=== PATIENT | male | born 1960 | race Caucasian/White ===

== ENCOUNTER 2016-12-22 19:50 | Emergency (ER) | payer OTHER ==
[2016-12-22 20:06] VITALS: BP 109/71
[2016-12-22] MEDS ORDERED: Diphtheria,Pertussis(Acell),Tetanus Vaccine 0.5 ML SDV IM ONE (20:39)
[2016-12-22] MEDS ORDERED: Bacitracin/Neomycin/Polymyxin B Oint 0.9 GM U/D Packet TOP ONE (20:44)
--- NOTE | 2016-12-22 20:59 | EDM.PDOC ---
ED HPI GENERAL MEDICAL PROBLEM - General Chief Complaint: General Stated Complaint: laceration Time Seen by Provider: 12/22/16 20:15 Source of Information: Reports: Patient History Limitations: Reports: No Limitations - History of Present Illness INITIAL COMMENTS - FREE TEXT/NARRATIVE: The patient presents with a laceration to his dorsal thumb that he sustained while installing a freshly sharpened blade on his lawnmower. It happened just prior to arrival in the ER. He denies other injuries or complaints. He states his last tetanus vaccination was more than 6 years ago. - Related Data Allergies Allergy/AdvReac Type Severity Reaction Status Date / Time Penicillins Allergy Intermediate Redness Verified 07/11/13 16:34 Dairy Products Allergy Chest Verified 12/22/16 19:52 Tightness, shortness of breath Iodine and Iodide Containing Allergy Anaphylactic Verified 07/10/14 13:00 Produc Shock lecithin, soy Allergy Anaphylactic Verified 07/11/13 16:34 Shock peanut Allergy Anaphylactic Verified 07/11/13 19:32 Shock petrolatum, yellow Allergy Shortness Verified 07/11/13 16:34 of Breath petrolatum,white Allergy Shortness Verified 07/10/14 13:49 [From Petroleum Jelly] of Breath povidone-iodine Allergy rash and Verified 07/10/14 13:00 [From Betadine] swelling at site used soap [From Betadine] Allergy rash and Verified 07/10/14 13:00 swelling at site used eggs Allergy Severe Anaphylactic Uncoded 07/11/13 16:34 Shock chocolate Allergy Anaphylactic Uncoded 07/11/13 16:34 Shock fruits Allergy Airway Uncoded 07/10/14 15:28 Tightness, anaphylactic reaction seafood Allergy Anaphylactic Uncoded 07/11/13 16:34 Shock shrimp Allergy Anaphylactic Uncoded 07/11/13 16:34 Shock smoked meats Allergy Airway Uncoded 07/10/14 15:28 Tightness spices Allergy Anaphylactic Uncoded 07/10/14 15:28 Shock vanilla Allergy Anaphylactic Uncoded 07/11/13 16:34 Shock vegetables Allergy Airway Uncoded 07/10/14 15:28 Tightness, anaphylactic reaction Home Meds: Home Meds Desvenlafaxine [Pristiq] 50 mg PO BEDTIME 07/11/13 [History] Albuterol Sulfate [Albuterol Sulfate HFA] 1 puff INH Q4HR PRN 07/10/14 [History] Albuterol [Proventil Neb Soln] 1 ampule INH TID PRN 07/10/14 [History] Fluticasone/Salmeterol [Advair 250-50 Diskus] 1 puff INH BID PRN 07/10/14 [ History] Montelukast Sodium [Singulair] 10 mg PO DAILY #30 tablet 07/13/14 [Rx] Past Medical History - Past Health History Medical/Surgical History: Denies Medical/Surgical History Social & Family History - Tobacco Use Smoking Status *Q: Never Smoker Second Hand Smoke Exposure: No - Caffeine Use Caffeine Use: Reports: None Caffeine Use Comment: rare soda - Recreational Drug Use Recreational Drug Use: No ED ROS GENERAL - Review of Systems Review Of Systems: ROS reveals no pertinent complaints other than HPI. ED EXAM, GENERAL - Physical Exam Exam: See Below Exam Limited By: No Limitations General Appearance: Alert, WD/WN, No Apparent Distress Eye Exam: Bilateral Eye: EOMI, Normal Fundi, Normal Inspection, PERRL Ears: Normal External Exam, Normal Canal, Hearing Grossly Normal, Normal TMs Ear Exam: Bilateral Ear: Auricle Normal, Canal Normal, TM normal Nose: Normal Inspection, Normal Mucosa, No Blood Throat/Mouth: Normal Inspection, Normal Lips, Normal Teeth, Normal Gums, Normal Oropharynx, Normal Voice Head: Atraumatic, Normocephalic Respiratory/Chest: No Respiratory Distress, Lungs Clear, Normal Breath Sounds, No Accessory Muscle Use, Chest Non-Tender Cardiovascular: Normal Peripheral Pulses, Regular Rate, Rhythm, No Edema, No Gallop, No Murmur, No Rub Peripheral Pulses: 2+: Radial (L), Radial (R) GI/Abdominal: Normal Bowel Sounds, Soft, Non-Tender, No Organomegaly, No Distention Back Exam: Normal Inspection, Full Range of Motion. No: CVA Tenderness (L), CVA Tenderness (R), Paraspinal Tenderness, Vertebral Tenderness Extremities: Normal Inspection, Normal Range of Motion, Non-Tender, No Pedal Edema, Normal Capillary Refill Neurological: Alert, Oriented, CN II-XII Intact, Normal Cognition, Normal Gait, Normal Reflexes, No Motor/Sensory Deficits Skin Exam: Warm, Dry, Normal Color, No Rash, Other (2 cm linear laceration of right dorsal thumb down to deep dermal layer. No gross contamination or active bleeding. Wound cleansed and soaked in Chlorhexidine/Hibiclens. No damage to tendons, nerves, or vessels. ) ED GENERAL MEDICAL PROCEDURES - Laceration/Wound Repair Right Dorsal Finger Lac/wound length in cm: 2 (Right dorsal thumb.) Appearance: subcutaneous, linear, clean Distal NVT: neuro & vascular intact, no tendon injury Anesthetic Type: local Local anesthesia - Lidocaine (Xylocaine): 1% plain Local anesthetic volume: 5cc Skin prep: chlorhexidine (hibiciens) Saline irrigation (cc's): 20 Exploration/Debridement/Repair: wound explored, in a bloodless field, explored to base Closed with: sutures Suture size: other (5-0) # of sutures: 4 Suture type: nylon Tetanus status addressed: Yes Complications: No Progress/Comments: Patient tolerated well with complications or complaints. Course - Vital Signs Last Recorded V/S: Last Vital Signs Temp 36.9 C 12/22/16 20:04 Pulse 74 12/22/16 20:04 Resp 16 12/22/16 20:04 BP 109/71 12/22/16 20:04 Pulse Ox 97 12/22/16 20:04 - Orders/Labs/Meds Orders: Active Orders 24 hr Category Date Time Status Vaccines to be Administered [RC] PER UNIT ROUTINE Care 12/22/16 20:40 Active Meds: Medications Discontinued Medications Generic Name Dose Route Start Last Admin Trade Name Freq PRN Reason Stop Dose Admin Diphtheria/Tetanus/Acell Pertussis 0.5 ml 12/22/16 20:39 Adacel IM 12/22/16 20:40 .ONCE ONE Lidocaine HCl 5 ml 12/22/16 20:12 12/22/16 20:33 Xylocaine-Mpf 1% INJECT 12/22/16 20:13 5 ml ONETIME ONE Administration Neomycin/Polymyxin/Bacitracin 1 each 12/22/16 20:44 Triple Antibiotic Oint TOP 12/22/16 20:45 ONETIME ONE Departure - Departure Time of Disposition: 20:59 Disposition: Home, Self-Care 01 Clinical Impression: Laceration of thumb, right Qualifiers: Encounter type: initial encounter Qualified Code(s): S61.011A - Laceration without foreign body of right thumb without damage to nail, initial encounter - Discharge Information Forms: ED Department Discharge - My Orders Last 24 Hours: My Active Orders 12/22/16 20:40 Vaccines to be Administered [RC] PER UNIT ROUTINE - Assessment/Plan Last 24 Hours: My Active Orders 12/22/16 20:40 Vaccines to be Administered [RC] PER UNIT ROUTINE Assessment:: Laceration of right thumb, 2 cm. Plan: 1. Wound cleansed and suture closure as above. 2. Triple antibiotic ointment applied followed by sterile dressing. Instructed to leave dry and in place for 24 hours. 3. After 24 hours may remove dressing and shower/wash with mild soap but do not soak until sutures removed. 4. OTC ibuprofen 400-800 mg every 6 hours as needed for pain. 5. Return to clinic in 7-10 days for suture removal or sooner if increased redness, swelling, opening of wound or drainage.
== END 2016-12-22 21:15 | disposition home or self-care (01) ==
LOC: LL.ED 19:50
DX: S61.011A Laceration without foreign body of right thumb without damage to nail, initial encounter (principal); Z88.0 Allergy status to penicillin; Z91.010 Allergy to peanuts; Z88.8 Allergy status to other drugs, medicaments and biological substances; Z91.012 Allergy to eggs; Z91.011 Allergy to milk products; Z91.013 Allergy to seafood; Z91.018 Allergy to other foods; Z79.899 Other long term (current) drug therapy; W28.XXXA Contact with powered lawn mower, initial encounter
CPT/HCPCS: 12001; 90471; 90715; 99282

== ENCOUNTER 2017-04-13 10:46 | Emergency (ER) | payer OTHER ==
[2017-04-13] MEDS ORDERED: Famotidine 20 MG/2 ML SDV IVPUSH ONE (11:07)
[2017-04-13] MEDS ORDERED: Sodium Chloride 0.9% 10 ML Syringe FLUSH PRN (11:07)
--- NOTE | 2017-04-13 11:07 | EDM.PDOC ---
ED HPI GENERAL MEDICAL PROBLEM - General Chief Complaint: General Stated Complaint: i was stung by a yellow jacket Time Seen by Provider: 04/13/17 11:00 Source of Information: Reports: Patient, Old Records ([facility] chart/EMR) History Limitations: Reports: No Limitations - History of Present Illness INITIAL COMMENTS - FREE TEXT/NARRATIVE: The patient was brought to the emergency room via private automobile by his friend for evaluation of a yellow jacket sting, which occurred at his home at 10 :45 AM this morning. He did see the stinger in his right wrist at time of the above injury, however this has since fallen out prior to my evaluation as below. The patient has not taken any medications after the above injury, including his own EpiPen, etc. He complains of initial 7/10 burning sensation at sting site with improvement to 5/10 by time of my arrival in the emergency room. He denies any other significant allergic-type symptoms including angioedema, dysphasia, dyspnea, etc.. The patient denies any chest pain/pressure , heart flutter, dizziness, orthostasis, orthopnea, diaphoresis, paresthesias, recent decreased exercise tolerance, or any other anginal-type symptoms. No recent history of abdominal pain, heartburn, nausea, diarrhea, melena, gross hematochezia, or any food intolerance, including fatty foods, etc.. The patient also denies any recent fever, cough, wheezing, dyspnea, etc.. Onset: Today, Sudden Onset Date: 04/13/17 Onset Time: 10:45 Duration: Improving Location: Reports: Upper Extremity, Right. Denies: Head, Face, Neck, Chest, Abdomen, Back, Pelvis, Upper Extremity, Left, Lower Extremity, Left, Lower Extremity, Right, Generalized, Radiates to Quality: Reports: Burning, Same as Previous Episode Severity: Moderate Improves with: Reports: None Worsens with: Reports: None Context: Reports: Other (As above) Associated Symptoms: Reports: Rash (Mild redness at sting site). Denies: Confusion, Chest Pain, Cough, Diaphoresis, Fever/Chills, Headaches, Loss of Appetite, Malaise, Nausea/Vomiting, Shortness of Breath, Syncope, Weakness Treatments [employer]: Reports: Other (see below) (None) Right Lower Wrist Pain Score (Numeric/FACES): 5 - Related Data Allergies Allergy/AdvReac Type Severity Reaction Status Date / Time Penicillins Allergy Intermediate Redness Verified 07/11/13 16:34 Dairy Products Allergy Chest Verified 12/22/16 19:52 Tightness, shortness of breath Iodine and Iodide Containing Allergy Anaphylactic Verified 07/10/14 13:00 Produc Shock lecithin, soy Allergy Anaphylactic Verified 07/11/13 16:34 Shock peanut Allergy Anaphylactic Verified 07/11/13 19:32 Shock petrolatum, yellow Allergy Shortness Verified 07/11/13 16:34 of Breath petrolatum,white Allergy Shortness Verified 07/10/14 13:49 [From Petroleum Jelly] of Breath povidone-iodine Allergy rash and Verified 07/10/14 13:00 [From Betadine] swelling at site used soap [From Betadine] Allergy rash and Verified 07/10/14 13:00 swelling at site used eggs Allergy Severe Anaphylactic Uncoded 07/11/13 16:34 Shock chocolate Allergy Anaphylactic Uncoded 07/11/13 16:34 Shock fruits Allergy Airway Uncoded 07/10/14 15:28 Tightness, anaphylactic reaction seafood Allergy Anaphylactic Uncoded 07/11/13 16:34 Shock shrimp Allergy Anaphylactic Uncoded 07/11/13 16:34 Shock smoked meats Allergy Airway Uncoded 07/10/14 15:28 Tightness spices Allergy Anaphylactic Uncoded 07/10/14 15:28 Shock vanilla Allergy Anaphylactic Uncoded 07/11/13 16:34 Shock vegetables Allergy Airway Uncoded 07/10/14 15:28 Tightness, anaphylactic reaction Home Meds: Home Meds Desvenlafaxine [Pristiq] 50 mg PO BEDTIME 07/11/13 [History] Albuterol Sulfate [Albuterol Sulfate HFA] 1 puff INH Q4HR PRN 07/10/14 [History] Albuterol [Proventil Neb Soln] 1 ampule INH TID PRN 07/10/14 [History] Montelukast Sodium [Singulair] 10 mg PO DAILY #30 tablet 07/13/14 [Rx] Calcium Carbonate/Vitamin D3 [Calcium 600-Vit D3 400 Tablet] 1 each PO DAILY 11/24 [History] EPINEPHrine [Epipen] 1 ampule SUBCUT ASDIRECTED PRN 04/13/17 [History] Famotidine [Pepcid] 20 mg PO BID #14 tablet 04/13/17 [Rx] diphenhydrAMINE [Benadryl] 50 mg PO QID PRN #100 tablet 04/13/17 [Rx] Past Medical History HEENT History: Reports: Allergic Rhinitis, Impaired Vision, Other (See Below). Denies: Cataract, Glaucoma, Hard of Hearing, Macular Degeneration, Retinal Detachment Other HEENT History: Severe multiple allergies to multiple substances including secondary anaphylaxis with the patient currently receiving allergy immunotherapy , the patient wears glasses Cardiovascular History: Reports: High Cholesterol, Other (See Below). Denies: Afib, Aneurysm, Arrhythmia, Blood Clots/VTE/DVT, CAD, Cardiomyopathy, Heart Murmur, Hypertension, ID, PTCA, PVD, Syncope Other Cardiovascular History: Hyperlipidemia with fatty liver by ultrasound with current diet therapy Respiratory History: Reports: Asthma, Bronchitis, Recurrent, COPD, Pneumonia, Recurrent, Pulmonary Fibrosis, Other (See Below). Denies: Intubation, Previous , PE, Pneumothorax, Sleep Apnea, TB Other Respiratory History: COPD and pulmonary fibrosis by chest x-ray Gastrointestinal History: Reports: Gastritis, GERD, Other (See Below). Denies: Bowel Obstruction, Celiac Disease, Cholelithiasis, Chronic Constipation, Chronic Diarrhea, GI Bleed, Hepatitis, Hiatal Hernia, Inflammatory Bowel Disease , Irritable Bowel Syndrome, Jaundice, Pancreatitis, PUD Other Gastrointestinal History: History of esophageal stenosis requiring dilatation as below, no dysphagia Genitourinary History: Denies: Acute Renal Failure, BPH, Chronic Renal Insuffiency, Renal Calculus, STD, Urinary Incontinence, UTI, Recurrent Musculoskeletal History: Reports: Fracture, Osteoarthritis, Osteoporosis, Other (See Below). Denies: Amputation, Arthritis, Back Pain, Chronic, Gout, Neck Pain , Chronic, RA, SLE Other Musculoskeletal History: Left clavicular fracture at age 5 Neurological History: Reports: Headaches, Chronic, Other (See Below). Denies: Concussion, CVA, Head Trauma, Migraines, MS, Neuropathy, Diabetic, Neuropathy, Peripheral, Parkinson's, Seizure, TIA Other Neuro History: Headaches nonproblematic at this time Psychiatric History: Reports: None, Anxiety, Depression. Denies: Abuse, Victim of, ADD, ADHD, Addiction, Psych Hospitalization(s), PTSD, Suicide Attempt, Suicidal Ideation Endocrine/Metabolic History: Reports: Osteoporosis. Denies: Diabetes, Type I, Diabetes, Type II, Hypothyroidism, IDDM Hematologic History: Reports: Blood Transfusion(s), Other (See Below). Denies: Anemia Other Hematologic History: Blood transfusion in about 1965 for unknown reason Immunologic History: Reports: Immunosuppression, Other (See Below). Denies: AIDS, HIV, SLE Other Immunologic History: Current immunotherapy for allergies as above Oncologic (Cancer) History: Reports: None. Denies: Basal Cell Carcinoma, Hodgkin's Lymphoma, Leukemia, Lymphoma, Malignant Melanoma, Non-Hodgkin's Lymphoma, Squamous Cell Carcinoma Dermatologic History: Reports: Angiodema, Other (See Below). Denies: Eczema, Psoriasis Other Dermatologic History: Angioedema with allergic reactions as above - Infectious Disease History Infectious Disease History: Reports: Chicken Pox, Mononucleosis (1970s). Denies : C-Difficile, Measles, Meningitis, MRSA, Mumps, Pertussis (Whooping Cough), Rheumatic Fever, Rubella, Scarlet Fever, Shingles, VRE - Past Surgical History Head Surgeries/Procedures: Reports: None HEENT Surgical History: Reports: Naso-Sinus Surgery, Oral Surgery, Other (See Below). Denies: Adenoidectomy, Cataract Surgery, Eye Surgery, Laser Surgery, LASIK, Tonsillectomy Other HEENT Surgeries/Procedures: [place] teeth extraction 4 at about age 21, nasal septum repair 3 in his 20s Cardiovascular Surgical History: Reports: None. Denies: Varicose, Vascular Surgery Respiratory Surgical History: Reports: None. Denies: Thoracentesis GI Surgical History: Reports: EGD, Other (See Below). Denies: Appendectomy, Cholecystectomy, Colonoscopy, Hernia, Abdominal, Hernia, Inguinal, Hernia Repair /Other Other GI Surgeries/Procedures: EGD with esophageal dilatation in the 1980s Male Surgical History: Reports: Circumcision, Other (See Below). Denies: TURP-Transurethral Resection of Prostate, Vasectomy Other Male Surgeries/Procedures: Circumcision as an infant Endocrine Surgical History: Reports: None. Denies: Thyroid Biopsy Neurological Surgical History: Denies: C-Spine, Laminectomy, Lumbar Spine, Sacral Spine, Spinal Fusion, Vertebroplasty Musculoskeletal Surgical History: Reports: None. Denies: Amputation, Arthroscopic Procedure, Carpal Tunnel, Ganglion Cyst, Joint Replacement, ORIF, Shoulder Surgery Oncologic Surgical History: Reports: None Dermatological Surgical History: Reports: None - Past Imaging History Past Imaging History: Reports: CAT Scan (CT of the maxillofacial region on ), DEXA Scan (Positive DEXA scan on 03/13/14 with previous evaluation on 10/31/10 ), Stress Testing (Cardiolite stress test on 09/29/02 with ejection fraction of 59%), Ultrasound (Gallbladder ultrasound on 07/29/16) Social & Family History - Tobacco Use Smoking Status *Q: Never Smoker Second Hand Smoke Exposure: No Second Hand Smoke Education Provided: No - Caffeine Use Caffeine Use: Reports: None. Denies: Coffee, Energy Drinks, Soda, Tea - Alcohol Use Alcohol Use History: Yes Days Per Week of Alcohol Use: 0 (No previous DWIs, problems with alcohol abuse, etc.) Number of Drinks Per Day: 1 (Usually beer 2 times per year) Total Drinks Per Week: 0 Alcohol Use Frequency: Rarely, Socially - Recreational Drug Use Recreational Drug Use: No Drug Use in Last 12 Months: No Recreational Drug Type: Denies: Amphetamines (Speed), Cocaine, Inhalants (Glues , Solvents, Aerosols), LSD (Acid), Marijuana/Hashish, Methamphetamine, Morphine - Living Situation & Occupation Living situation: Reports: (1998, 3 children), with Significant Other 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 ED EXAM, GENERAL - Physical Exam Exam: See Below Exam Limited By: No Limitations General Appearance: Alert, WD/WN, No Apparent Distress, Anxious (Mild) Eye Exam: Bilateral Eye: EOMI, Normal Inspection (No nystagmus), PERRL (PERRLA) Ears: Normal External Exam, Normal Canal, Hearing Grossly Normal, Normal TMs Nose: Normal Inspection, Normal Mucosa, No Blood Throat/Mouth: Normal Inspection, Normal Lips, Normal Teeth, Normal Gums, Normal Oropharynx, Normal Voice, No Airway Compromise, Other (No facial angioedema, uvular swelling, dysphagia, etc.). No: Dysphagia, Perioral Cyanosis Head: Atraumatic, Normocephalic. No: Facial Swelling, Facial Tenderness, Sinus Tenderness Neck: Normal Inspection, Supple, Non-Tender, Full Range of Motion. No: Lymphadenopathy (L), Lymphadenopathy (R), Thyromegaly Respiratory/Chest: No Respiratory Distress, Lungs Clear, Normal Breath Sounds, No Accessory Muscle Use, Chest Non-Tender. No: Pleural Rub, Retractions Cardiovascular: Normal Peripheral Pulses, Regular Rate, Rhythm, No Edema, No Gallop, No JVD, No Murmur, No Rub. No: Gallop/S3, Gallop/S4, Friction Rub Peripheral Pulses: 4+: Radial (L), Radial (R) GI/Abdominal: Normal Bowel Sounds, Soft, Non-Tender, No Organomegaly, No Distention, No Abnormal Bruit, No Mass. No: Guarding (Male) Exam: Deferred Rectal (Males) Exam: Deferred Back Exam: Normal Inspection, Full Range of Motion. No: CVA Tenderness (L), CVA Tenderness (R), Muscle Spasm Extremities: Normal Range of Motion, No Pedal Edema, Normal Capillary Refill, Arm Pain (Mild palpation pain over sting site with no evidence of retained stinger at the sensor surface of his right wrist), Redness (Trace to +1 erythema over sting site over the mid dorsal aspect of his right wrist with no lymphangitis, significant edema, etc.) Neurological: Alert, Oriented, CN II-XII Intact, Normal Cognition, Normal Gait, No Motor/Sensory Deficits Psychiatric: Anxious (Mild). No: Depressed Mood Skin Exam: Rash (Local reaction as above), Wound/Incision (Stinger bite as above ). No: Diaphoretic Course - Vital Signs Last Recorded V/S: Last Vital Signs Temp 36.7 C 04/13/17 10:49 Pulse 83 04/13/17 11:06 Resp 20 04/13/17 11:06 BP 124/87 04/13/17 11:06 Pulse Ox 98 04/13/17 11:06 Vital Signs - 24 hr 04/13/17 04/13/17 04/13/17 10:49 11:06 11:23 Temperature [ 36.7 C Temporal] Pulse, 7 L 83 75 Peripheral [ Left Pulse Oximetry] Respiratory 22 H 20 20 Rate Blood Pressure 128/106 H 124/87 117/85 [Left Upper Arm ] O2 Sat by Pulse 98 98 Oximetry 04/13/17 11:38 Temperature [ Temporal] Pulse, 72 Peripheral [ Left Pulse Oximetry] Respiratory 20 Rate Blood Pressure 120/84 [Left Upper Arm ] O2 Sat by Pulse 98 Oximetry - Orders/Labs/Meds Orders: Active Orders 24 hr Category Date Time Status Peripheral IV Care [RC] . DIRECTED Care 04/13/17 11:07 Active Sodium Chloride 0.9% [Saline Flush] Med 04/13/17 11:07 Active 10 ml FLUSH ASDIRECTED PRN Obtain Past Medical Record [OM.PC] Urgent Oth 04/13/17 11:07 Active Peripheral IV Insertion Adult [OM.PC] Routine Oth 04/13/17 11:07 Ordered Medication Orders Sodium Chloride (Saline Flush) 10 ml FLUSH ASDIRECTED PRN PRN Reason: Keep Vein Open Last Admin: 04/13/17 11:23 Dose: 10 ml Labs: None Meds: Medications Generic Name Dose Route Start Last Admin Trade Name Freq PRN Reason Stop Dose Admin Sodium Chloride 10 ml 04/13/17 11:07 04/13/17 11:23 Saline Flush FLUSH 10 ml ASDIRECTED PRN Administration Keep Vein Open Discontinued Medications Generic Name Dose Route Start Last Admin Trade Name Freq PRN Reason Stop Dose Admin Diphenhydramine HCl 50 mg 04/13/17 11:08 04/13/17 11:16 Benadryl IVPUSH 04/13/17 11:09 50 mg ONETIME ONE Administration Famotidine 40 mg 04/13/17 11:07 04/13/17 11:17 Pepcid IVPUSH 04/13/17 11:08 40 mg ONETIME ONE Administration Methylprednisolone Sodium Succinate 125 mg 04/13/17 11:08 04/13/17 11:17 Solu-Medrol IVPUSH 04/13/17 11:09 125 mg ONETIME ONE Administration - Radiology Interpretation Free Text/Narrative:: None Departure - Departure Time of Disposition: 12:10 Disposition: Home, Self-Care 01 Condition: Good Clinical Impression: COPD, Moderate chronic obstructive pulmonary disease, Peptic reflux disease, Mixed anxiety depressive disorder Insect bite Qualifiers: Encounter type: initial encounter Qualified Code(s): W57.XXXA - Bitten or stung by nonvenomous insect and other nonvenomous arthropods, initial encounter Hyperlipidemia Qualifiers: Hyperlipidemia type: unspecified Qualified Code(s): E78.5 - Hyperlipidemia, unspecified Osteoarthritis Qualifiers: Osteoarthritis location: multiple joints Osteoarthritis type: primary Qualified Code(s): M15.0 - Primary generalized (osteo)arthritis - Discharge Information Prescriptions: diphenhydrAMINE [Benadryl] 50 mg PO QID PRN #100 tablet PRN Reason: Hives Famotidine [Pepcid] 20 mg PO BID #14 tablet Instructions: Angioedema, [id number], Insect Bite, [id number] Forms: ED Department Discharge Additional Instructions: 1. Follow up with your regular provider in 10-14 days as needed, if symptoms persist. 2. Local ice packs as directed 3. Continue to observe your symptoms closely with immediate EpiPen injection, if symptoms worsen/recur, as discussed 4. Tylenol 650 mg by mouth every 4 hours and/or OTC ibuprofen 2-3 tabs by mouth every 6 hours with food as directed./needed. 5. Sedation precautions with no driving, etc. for 18 hours because of emergency room medications with additional sedation precautions with as needed Benadryl use as discussed. 6. Follow-up with your regular provider MARYELLEN concerning possible reinitiation of your therapy for osteoporosis as discussed - Problem List & Annotations (1) Insect bite SNOMED Code(s): 945597832 Code(s): W57.XXXA - BIT/STUNG BY NONVENOM INSECT & OTH NONVENOM ARTHROPODS, INIT Status: Acute Priority: High Onset Date: 04/13/17 Annotation/ Comment:: Various therapeutic options were discussed with the patient, who is requesting delay of epinephrine injection for the time being. He does have an EpiPen at home. Overall excellent response to IV therapy as above with no direct evidence of significant allergic reaction at this time. Note patient's previous history of significant allergic reactions, however. Continue to observe closely as per discharge instructions Qualifiers: Encounter type: initial encounter Qualified Code(s): W57.XXXA - Bitten or stung by nonvenomous insect and other nonvenomous arthropods, initial encounter (2) COPD, Moderate chronic obstructive pulmonary disease SNOMED Code(s): 666711820 Code(s): J44.9 - CHRONIC OBSTRUCTIVE PULMONARY DISEASE, UNSPECIFIED Status : Chronic Priority: Medium Annotation/Comment:: Stable by history with no recent fever or bronchitic type symptoms (3) Hyperlipidemia SNOMED Code(s): 26656745 Code(s): E78.5 - HYPERLIPIDEMIA, UNSPECIFIED Status: Chronic Priority: Medium Annotation/Comment:: Currently diet controlled. History of fatty liver by ultrasound as above Qualifiers: Hyperlipidemia type: unspecified Qualified Code(s): E78.5 - Hyperlipidemia , unspecified (4) Mixed anxiety depressive disorder SNOMED Code(s): 409041491 Code(s): F41.8 - OTHER SPECIFIED ANXIETY DISORDERS Status: Chronic Priority: Medium Annotation/Comment:: Stable by patient history (5) Osteoarthritis SNOMED Code(s): 907255671 Code(s): M19.90 - UNSPECIFIED OSTEOARTHRITIS, UNSPECIFIED SITE Status: Chronic Priority: Medium Annotation/Comment:: Additional history of osteoporosis with not having his Reklast therapy for about 2 years. He will discuss this further with his regular provider as per discharge instructions. Continue calcium with vitamin D supplement for now. Otherwise his arthritis is stable by history Qualifiers: Osteoarthritis location: multiple joints Osteoarthritis type: primary Qualified Code(s): M15.0 - Primary generalized (osteo)arthritis (6) Peptic reflux disease SNOMED Code(s): 00489286 Code(s): K21.9 - GASTRO-ESOPHAGEAL REFLUX DISEASE WITHOUT ESOPHAGITIS Status: Chronic Priority: Medium Annotation/Comment:: Nonproblematic - Problem List Review Problem List Initiated/Reviewed/Updated: Yes - My Orders Last 24 Hours: My Active Orders 04/13/17 11:07 Peripheral IV Care [RC] . DIRECTED Sodium Chloride 0.9% [Saline Flush] 10 ml FLUSH ASDIRECTED PRN Obtain Past Medical Record [OM.PC] Urgent Peripheral IV Insertion Adult [OM.PC] Routine - Assessment/Plan Last 24 Hours: My Active Orders 04/13/17 11:07 Peripheral IV Care [RC] . DIRECTED Sodium Chloride 0.9% [Saline Flush] 10 ml FLUSH ASDIRECTED PRN Obtain Past Medical Record [OM.PC] Urgent Peripheral IV Insertion Adult [OM.PC] Routine Assessment:: As above Plan: As above. Extensive precautions were given to the patient, who is in agreement with the treatment plan. See Patient Instructions for further treatment and plan.
[2017-04-13] MEDS ORDERED: diphenhydrAMINE 50 MG/ML SDV IVPUSH ONE (11:08)
[2017-04-13] MEDS ORDERED: methylPREDNISolone Sodium Succinate 125 MG/2 ML SDV IVPUSH ONE (11:08)
[2017-04-13 11:59] VITALS: BP 120/84
== END 2017-04-13 12:06 | disposition home or self-care (01) ==
LOC: LL.ED 10:46
DX: T63.461A Toxic effect of venom of wasps, accidental (unintentional), initial encounter (principal); J45.909 Unspecified asthma, uncomplicated; F41.8 Other specified anxiety disorders; J44.9 Chronic obstructive pulmonary disease, unspecified; K21.9 Gastro-esophageal reflux disease without esophagitis; M81.0 Age-related osteoporosis without current pathological fracture; M15.0 Primary generalized (osteo)arthritis; E78.5 Hyperlipidemia, unspecified; Z91.010 Allergy to peanuts; Z91.012 Allergy to eggs; Z91.018 Allergy to other foods; Z91.013 Allergy to seafood; Z88.8 Allergy status to other drugs, medicaments and biological substances; Z79.899 Other long term (current) drug therapy; Z88.0 Allergy status to penicillin; W57.XXXA Bitten or stung by nonvenomous insect and other nonvenomous arthropods, initial encounter
CPT/HCPCS: 96374; 96375; 99283; J1200; J2930; J7050; S0028

== ENCOUNTER 2022-01-18 06:47 | Emergency (ER) | payer OTHER ==
[2022-01-18 06:54] VITALS: BP 121/72; PULSE 108
[2022-01-18] MEDS ORDERED: Sodium Chloride 0.9% 10 ML Syringe FLUSH PRN (07:06)
[2022-01-18] MEDS ORDERED: Acetaminophen 500 MG Tab PO ONE (07:06)
[2022-01-18] MEDS ORDERED: Lactated Ringers 1,000 ML IV ONE (07:08)
[2022-01-18 07:45] LABS: CHLORIDE,CL 98 mmol/L (98-107); SODIUM,NA 135 mmol/L (136-145)
[2022-01-18] MEDS ORDERED: cefTRIAXone 2 GM in Sodium Chloride 0.9% 100 ML IV SCH (07:45)
[2022-01-18 07:48] LABS: ANION GAP 13.1 meq/L (7-15)
[2022-01-18 07:49] LABS: ESTIMATED GFR > 60 mL/min
[2022-01-18 08:24] LABS: CORONAVIRUS COVID-19 NAA NEGATIVE (NEGATIVE); RESPIRATORY SYNCYTIAL VIR NAA NEGATIVE (NEGATIVE)
[2022-01-18] MEDS ORDERED: Lactated Ringers 1,000 ML IV SCH (09:15)
[2022-01-18] MEDS ORDERED: Iopamidol 612 MG/ML 100 ML Bottle IVPUSH ONE (09:21)
== END 2022-01-18 13:00 | disposition home or self-care (01) ==
LOC: LL.ED 06:47
DX: J18.9 Pneumonia, unspecified organism (principal); J45.909 Unspecified asthma, uncomplicated; Z79.899 Other long term (current) drug therapy; Z88.0 Allergy status to penicillin; Z91.011 Allergy to milk products; Z91.041 Radiographic dye allergy status; Z91.018 Allergy to other foods; Z91.010 Allergy to peanuts; Z91.013 Allergy to seafood; Z91.012 Allergy to eggs; Z91.048 Other nonmedicinal substance allergy status; Z20.822 Contact with and (suspected) exposure to COVID-19
CPT/HCPCS: 0241U; 36415; 70491; 71046; 80053; 81001; 83605; 85025; 87040; 96361; 96374; 99284-25; A9270-GY; J0696; J7120; Q9967

== ENCOUNTER 2022-11-20 11:08 | Day surgery (SDC) | payer OTHER ==
[~2022-11-20 11:08] MED LIST: Propofol 200 MG/20 ML SDV ONE
[2022-11-20] MEDS ORDERED: Lactated Ringers 1,000 ML IV SCH (11:30)
[2022-11-20] MEDS ORDERED: Sodium Chloride 0.9% 10 ML Syringe FLUSH PRN (11:30)
[2022-11-20] MEDS ORDERED: Propofol 200 MG/20 ML SDV ONE (12:50)
[2022-11-20 13:52] VITALS: BP 119/76; PULSE 62
== END 2022-11-20 14:03 | disposition home or self-care (01) ==
LOC: LL.SDS 11:08
PROVIDERS: ATTEND Surgery
DX: K22.2 Esophageal obstruction (principal); J30.9 Allergic rhinitis, unspecified; J45.909 Unspecified asthma, uncomplicated; E78.00 Pure hypercholesterolemia, unspecified; F41.9 Anxiety disorder, unspecified; F32.A Depression, unspecified; M19.90 Unspecified osteoarthritis, unspecified site; M81.0 Age-related osteoporosis without current pathological fracture; Z88.0 Allergy status to penicillin; Z91.048 Other nonmedicinal substance allergy status; Z98.890 Other specified postprocedural states; Z79.899 Other long term (current) drug therapy
CPT/HCPCS: J2704; J7120

== ENCOUNTER 2022-11-23 18:43 | Emergency (ER) | payer OTHER ==
[2022-11-23 19:29] VITALS: BP 115/85; PULSE 115
[2022-11-23 19:56] LABS: ANION GAP 7.1 meq/L (7-15)
[2022-11-23 19:59] LABS: CORONAVIRUS COVID-19 NAA NEGATIVE (NEGATIVE)
[2022-11-23 20:00] LABS: RESPIRATORY SYNCYTIAL VIR NAA NEGATIVE (NEGATIVE)
== END 2022-11-23 20:45 | disposition home or self-care (01) ==
LOC: LL.ED 18:43
DX: J06.9 Acute upper respiratory infection, unspecified (principal); J44.9 Chronic obstructive pulmonary disease, unspecified; Z20.822 Contact with and (suspected) exposure to COVID-19; Z88.0 Allergy status to penicillin; Z91.030 Bee allergy status; Z91.041 Radiographic dye allergy status; Z91.010 Allergy to peanuts; Z91.012 Allergy to eggs; Z91.018 Allergy to other foods; Z91.011 Allergy to milk products; Z91.013 Allergy to seafood
CPT/HCPCS: 0241U; 36415; 71046; 80053; 85025; 86140; 99285

== ENCOUNTER 2023-05-07 09:06 | Day surgery (SDC) | payer OTHER ==
[~2023-05-07 09:06] MED LIST changes: +Midazolam 1 MG/ML 2 ML SDV ONE
[2023-05-07] MEDS ORDERED: Sodium Chloride 0.9% 10 ML Syringe FLUSH PRN (09:30)
[2023-05-07] MEDS: Lactated Ringers 1,000 ML IV SCH (09:45)
[2023-05-07] MEDS ORDERED: Glycopyrrolate 0.2 MG/ML SDV IVPUSH ONE (10:35)
[2023-05-07] MEDS ORDERED: Lidocaine 2% 5 ML SDV ONE (10:35)
[2023-05-07 13:26] VITALS: BP 114/80; PULSE 63
== END 2023-05-07 12:45 | disposition home or self-care (01) ==
LOC: LL.SDS 09:06
PROVIDERS: ATTEND Surgery
DX: K22.2 Esophageal obstruction (principal); K25.9 Gastric ulcer, unspecified as acute or chronic, without hemorrhage or perforation; K31.89 Other diseases of stomach and duodenum; K20.90 Esophagitis, unspecified without bleeding; N18.30 Chronic kidney disease, stage 3 unspecified; I45.10 Unspecified right bundle-branch block; Z79.899 Other long term (current) drug therapy; Z88.0 Allergy status to penicillin; Z88.8 Allergy status to other drugs, medicaments and biological substances; Z91.010 Allergy to peanuts; Z91.013 Allergy to seafood
CPT/HCPCS: 00731; J2250; J2704; J3490; J7120

== ENCOUNTER 2024-12-15 08:31 | Day surgery (SDC) | payer OTHER ==
[~2024-12-15 08:31] MED LIST changes: +Sodium Chloride 0.9% 10 ML Syringe FLUSH PRN
[2024-12-15] MEDS: Lactated Ringers 1,000 ML IV SCH (09:49)
[2024-12-15] MEDS ORDERED: Glycopyrrolate 0.2 MG/ML SDV IVPUSH ONE (10:45)
[2024-12-15] MEDS ORDERED: Propofol 200 MG/20 ML SDV IV ONE (10:45)
[2024-12-15 11:37] VITALS: BP 131/87; PULSE 70
== END 2024-12-15 12:30 | disposition home or self-care (01) ==
LOC: LL.SDS 08:31
PROVIDERS: ATTEND Surgery
DX: K22.2 Esophageal obstruction (principal); K21.00 Gastro-esophageal reflux disease with esophagitis, without bleeding; Z88.0 Allergy status to penicillin
CPT/HCPCS: J1596; J2250; J2704; J7120